=== PATIENT | female | born 1945 | race African-American/Black ===

== ENCOUNTER 2019-05-06 22:12 | Emergency (ER) | payer OTHER, MEDICAID ==
[~2019-05-06] VITALS: Ht 165.1 cm; Wt 72.6 kg
[~2019-05-06 22:12] MED LIST: ACE325T PO; ALBUAER3 IN; ASPI-404 PO; DOCU100C8 PO; LEVO500T21 PO; METO-169 PO; METR500T PO; OMEP20TA PO; SIMV-13 PO
[2019-05-06 23:12] VITALS: BP 109/65
[2019-05-06 23:18] LABS: Basophils # (auto) 0.1 uL; Basophils % (auto) 1.4 % (0.0-2.0); Eosinophils # (auto) 0.1 uL; Eosinophils % (auto) 2.7 % (0.0-7.0); Hematocrit 42.4 % (36.0-46.0); Lymphocytes # (auto) 1.2 uL; Lymphocytes % (auto) 25.6 % (10.0-50.0); Mean Corpuscular Hemoglobin 31.7 pg (28.0-32.0); Mean Corpuscular Hgb Conc. 33.1 g/dL (32.0-36.0); Monocytes # (auto) 0.3 uL; Monocytes % (auto) 6.1 % (0.0-12.0); Neutrophils # (auto) 3.1 uL; Neutrophils % (auto) 64.2 % (37.0-80.0); Nucleated Red Blood Cells % 0.1 %; Platelet Count (auto) 270 10^3/uL (140-450); Red Blood Cells 4.41 10^6/uL (4.0-5.20); Red Cell Distribution Width 14.5 % (11.8-14.3); White Blood Cell 4.8 10^3/uL (4.4-10.8)
[2019-05-06 23:46] LABS: Alanine Aminotransferase 16 U/L (13-56); Albumin 3.3 g/dL (3.4-5.0); Anion Gap 9 (5-15); Aspartate Aminotransferase 15 U/L (15-37); BUN/Creatinine Ratio 11.5; Blood Urea Nitrogen 14 mg/dL (7-18); Carbon Dioxide 21 mmol/L (21-32); Chloride 112 mmol/L (98-107); GFR African American 56 mL/min; GFR Non-African American 46 mL/min; Glucose 110 mg/dL (74-106); Potassium 3.6 mmol/L (3.5-5.1); Sodium 142 mmol/L (136-145)
[2019-05-06 23:50] LABS: Alkaline Phosphatase 202 U/L (45-117); Bilirubin, Total 0.2 mg/dL (0.2-1.0)
[2019-05-07] MEDS ORDERED: MECLIZINE HCL 25 MG TAB PO ONE (02:00)
== END 2019-05-07 03:08 | disposition home or self-care (01) ==
LOC: EDBD 22:12 → ER 22:15
DX: R42 Dizziness and giddiness (principal); R53.1 Weakness; R51 Headache; R11.2 Nausea with vomiting, unspecified; J44.9 Chronic obstructive pulmonary disease, unspecified; K21.9 Gastro-esophageal reflux disease without esophagitis; E78.5 Hyperlipidemia, unspecified; I10 Essential (primary) hypertension; F17.210 Nicotine dependence, cigarettes, uncomplicated; Z79.899 Other long term (current) drug therapy
CPT/HCPCS: 36415; 70450; 80053; 82962; 83735; 84484; 85025; 93005; 99284; J8597

== ENCOUNTER 2024-03-13 23:14 | Emergency (ER) | payer MEDICAID, MEDICARE, OTHER ==
[~2024-03-13] VITALS: Ht 162.6 cm; Wt 70.5 kg
[~2024-03-13 23:14] MED LIST changes: -ACE325T PO; +ACET-1882 PO; -ASPI-404 PO; +ASPI-543 PO; +DOCU-265 PO; -DOCU100C8 PO; -LEVO500T21 PO; +LEVO500T31 PO; -METO-169 PO; +METO-289 PO; -SIMV-13 PO; +SIMV40TA18 PO
--- NOTE | 2024-03-14 00:27 | ED.PDOC ---
GI ASSESSMENT HPI Comments HPI: Poor Historian. 78-year-old female presents to the emergency department for evaluation of one- week history of intermittent epigastric/left upper quadrant pain. Pain is better with laying flat. Patient tried some Tums at home without significant improvement. Denies any associated nausea or vomiting or chest pain or shortness of breath. Past Medcial History: Hypertension, COPD, asthma Past Surgical History: Cholecystectomy REVIEW OF SYSTEMS: CONSTITUTIONAL: Denies acute: fever, diaphoresis, chills, generalized weakness. HEAD: Denies acute: headache, photophobia Eyes: Denies acute: Double vision, vision loss, eye pain, eye discharge. EARS: Denies acute: tinnitus, hearing loss, ear discharge, ear pain, THROAT: Denies acute: sore throat, swelling, difficulty swallowing , pain with swallowing, change in voice. NECK: Denies acute: neck pain, neck swelling, stiff neck. HEART: Denies acute : chest pain, palpitations, LUNGS: Denies acute: SOB, wheezing, cough, hemoptysis ABDOMEN: Denies acute: Nausea, Vomiting, diarrhea, melena , hematemesis, hematochezia SKIN: Denies acute: rash, redness, lesions, itchiness. EXTREMITIES: Denies acute: calf pain, numbness, tingling, weakness, denies pain in extremity. Denies acute: Low back pain. Neuro: Denies acute: focal neurological deficit, motor or sensory focal neurological deficit, tremors, seizure like activity, confusion, dizziness, change in mental status, loss of bowel or bladder function, cauda equina like symptoms. : Denies acute: dysuria, hematuria, flank pain, increase in urinary frequency. PSYCH: Denies acute: hallucination, suicidal ideation, homicidal ideation. FEMALE: Denies acute: abnormal vaginal bleeding, foul odor, unusual discharge. PHYSICAL EXAM: General: no acute distress, awake and alert. Head: normocephalic, atraumatic. Neck: supple, trachea is midline, no swelling. Throat: Normal phonation. Eyes:, no erythema, no purulent discharge, no proptosis, no icterus. Heart: regular rate, regular rhythm, no significant murmur appreciated. Lungs: no apparent respiratory distress, Able to speak in full sentences. No wheezing, no rhonchi, no crackles. No stridors Clear to auscultation bilaterally. Abdomen: Epigastric and left upper quadrant tender to palpation, non distended, soft, no guarding, no rebound, + bowel sounds. Neuro: Awake, Alert, oriented to name, self, situation, follows commands GCS=15. Speech is normal. Skin: no petechia, no purpura, no cyanosis, non-pale, not jaundice. Lower extremities: --trace - Pitting edema no deformity, no focal swelling, no calf TTP. Makes eye contact. moves all four extremities. Face: no apparent facial droop. Ambulating in the ED independently. Chief Complaint: Abdominal Pain Time Seen by MD: 23:47 Primary Care Provider: IRWIN Reviewed Notes: Nurses Notes, Allergies Allergies: Coded Allergies: NO KNOWN ALLERGIES (Unverified , 03/07/19) Home Meds Active Scripts Acetaminophen (Acetaminophen) 325 Mg Tab, 650 MG PO Q4HPRN PRN, #56 TAB Prov:ESTEPHANIA GIPSON MD 03/11/19 Metronidazole (Flagyl) 500 Mg Tab, 500 MG PO Q8HR, #30 TAB Prov:ESTEPHANIA GIPSON MD 03/11/19 Levofloxacin (Levaquin) 500 Mg Tab, 500 MG PO DAILY, #10 TAB Prov:ESTEPHANIA GIPSON MD 03/11/19 Docusate Sodium (Docusate Sodium) 100 Mg Cap, 100 MG PO BID PRN, #14 CAP Prov:ESTEPHANIA GIPSON MD 03/11/19 Reported Medications Simvastatin (Simvastatin) 40 Mg Tab, 40 MG PO HS for 30 Days 03/08/19 Aspirin (Aspir-Low) 81 Mg Tab, 81 MG PO DAILY for 30 Days, MG 03/08/19 Omeprazole (Gnp Omeprazole) 20 Mg Tab, 40 MG PO DAILY, TAB 03/08/19 Metoprolol Succinate (Metoprolol Succinate Er) 50 Mg Tab, 50 MG PO DAILY for 30 Days, MG 03/08/19 Albuterol Sulfate (VENTOLIN MDI) 90 Mcg Ih, 90 MCG IN DAILY PRN for SHORTNESS OF BREATH for 30 Days, MCG 03/08/19 Information Source: Patient Mode of Arrival: Ambulatory Past Medical History PAST MEDICAL HISTORY: Asthma, COPD, GERD, High Lipids, HTN Surgical History: Cholecystectomy, Tubal Ligation 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 HELPER 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: No Pertinent 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 KNITTER HELPER History Family History Family History: Family hx of DM, Family hx of heart [place] Social History Smoker: Cigarettes Alcohol: Occasionally Drugs: Denies Drug Use Lives In: Home X-Ray, Labs, Meds, VS Vital Signs Date Time Temp Pulse Resp B/P (MAP) Pulse Ox O2 Delivery O2 Flow Rate FiO2 03/14/24 00:57 63 03/13/24 23:47 63 03/13/24 23:29 99.1 76 16 166/85 (112) 94 Lab Test 03/14/24 02:17 03/14/24 00:33 03/14/24 00:14 Range/Units Troponin I High Sensitivity Pending 4 </=34 ng/L Urine Color Light-yellow Yellow Urine Clarity Clear Clear Urine pH 6.5 5.0-9.0 Urine Specific [place] 1.006 1.001-1.035 Urine Protein Negative Negative Urine Ketones Negative Negative Urine Blood Negative Negative /uL Urine Nitrite Negative Negative Urine Bilirubin Negative Negative Urine Urobilinogen Normal Negative mg/dL Urine Leukocyte Esterase Negative Negative /uL Urine RBC None seen 0 - 4 /hpf Urine WBC 1 0 - 5 /hpf Urine Squamous Epithelial Cells Few <5 /hpf Urine Bacteria Few H None Seen /hpf Urine Glucose Normal Normal mg/dL White Blood Count 5.2 4.4-10.8 10^3/uL Red Blood Count 5.11 4.0-5.20 10^6/uL Hemoglobin 16.3 H 12.2-16.2 g/dL Hematocrit 49.7 H 36.0-46.0 % Mean Corpuscular Volume 97.1 80.0-100.0 fL Mean Corpuscular Hemoglobin 31.9 28.0-32.0 pg Mean Corpuscular Hemoglobin Concent 32.8 32.0-36.0 g/dL Red Cell Distribution Width 14.5 H 11.8-14.3 % Platelet Count 209 140-450 10^3/uL Mean Platelet Volume 8.1 6.9-10.8 fL Neutrophils (%) (Auto) 35.3 L 37.0-80.0 % Lymphocytes (%) (Auto) 52.0 H 10.0-50.0 % Monocytes (%) (Auto) 8.3 0.0-12.0 % Eosinophils (%) (Auto) 3.1 0.0-7.0 % Basophils (%) (Auto) 1.3 0.0-2.0 % Neutrophils # (Auto) 1.8 1.6-8.6 10 ^3/uL Lymphocytes # (Auto) 2.7 0.4-5.4 10 ^3/uL Monocytes # (Auto) 0.4 0-1.3 10 ^3/uL Eosinophils # (Auto) 0.2 0-0.8 10 ^3/uL Basophils # (Auto) 0.1 0-0.2 10 ^3/uL Nucleated Red Blood Cells 0.2 % Sodium Level 139 136-145 mmol/L Potassium Level 4.0 3.5-5.1 mmol/L Chloride Level 109 H 98-107 mmol/L Carbon Dioxide Level 24 20-31 mmol/L Anion Gap 6 5-15 Blood Urea Nitrogen 5 L 9-23 mg/dL Creatinine 1.01 0.550-1.02 mg/dL Glomerular Filtration Rate Calc 57 >90 mL/min BUN/Creatinine Ratio 5.0 L 10.0-20.0 Serum Glucose 92 74-106 mg/dL Lactic Acid Level 1.4 0.4-2.0 mmol/L Calcium Level 10.6 H 8.7-10.4 mg/dL Total Bilirubin 0.8 0.2-1.0 mg/dL Aspartate Amino Transferase (AST) 11 L 13-40 U/L Alanine Aminotransferase (ALT) 9 7-40 U/L Alkaline Phosphatase 100 46-116 U/L Total Protein 6.9 5.7-8.2 g/dL Albumin 4.4 3.2-4.8 g/dL Lipase 38 12-53 U/L [place] [address] Ph: [phone] DIAGNOSTIC IMAGING Diagnostic Imaging Report : [id number] Signed PATIENT: LARS RUSS ACCT: [id number] UNIT: [id number] : 1945 LOC: [facility] ROOM / BED: [address] [place] [address] AGE / SEX: 73 / F ADM STATUS: ADM IN SERVICE 1532 ORDERING PHYSICIAN: ESTEPHANIA GIPSON MD PROCEDURE(s): ABPL - CT AB PEL WO CON-NO ORAL OR IV REASON: abdominal pain ORDER NUMBER(s): [id number], ACCESSION NUMBER(s): [id number] PROCEDURE: CT Abdomen and Pelvis Without Intravenous Contrast CLINICAL INDICATION: Abdominal pain. TECHNIQUE: Axial computed tomography images of the abdomen and pelvis without intravenous contrast. Sagittal and coronal reformatted images were created and reviewed. CTDIvol (mGy) = 17.01; total DLP (mGy-cm) = 882.42. This CT exam was performed using one or more of the following dose reduction techniques: automated exposure control, adjustment of the mA and/or kV according to patient size, and/or use of iterative reconstruction technique. DICOM images are available. COMPARISON: None FINDINGS: LUNG BASES: Unremarkable. No mass. No consolidation. ABDOMEN: LIVER: Unremarkable. GALLBLADDER AND BILE DUCTS: Suspect sludge or tiny gallstones in the dependent portion of the gallbladder. No changes of acute cholecystitis. No biliary dilatation. PANCREAS: Unremarkable. No ductal dilation. SPLEEN: Unremarkable. No splenomegaly. ADRENALS: Unremarkable. No mass. KIDNEYS AND URETERS: Unremarkable. No obstructing stones. No hydronephrosis. STOMACH AND BOWEL: Large hiatal hernia partially demonstrated, containing most of the stomach as well as a portion of the hepatic flexure of the colon. No mucosal thickening. PELVIS: APPENDIX: The appendix is normal in appearance. No evidence of appendicitis. BLADDER: Unremarkable. No stones. 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 ABDOMEN and PELVIS: INTRAPERITONEAL SPACE: Unremarkable. No free air. No significant fluid collection. BONES/JOINTS: No acute fracture. No dislocation. SOFT TISSUES: Unremarkable. VASCULATURE: Aorta is atherosclerotic, and measures up to 2.1 cm in diameter. LYMPH NODES: Unremarkable. No enlarged lymph nodes. IMPRESSION: 1. Large hiatal hernia partially demonstrated, containing most of the stomach as well as a portion of the hepatic flexure of the colon. No associated acute abnormality. 2. Aorta is atherosclerotic, and measures up to 2.1 cm in diameter. 3. 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 4. Suspect sludge or tiny gallstones in the dependent portion of the gallbladder. No changes of acute cholecystitis. No biliary dilatation. 5. No acute abnormality demonstrated in the abdomen and pelvis. RPTAT: [facility] DICTATED BY: ALIYA NUNES MD DICTATED DATE/TIME: 03/08/192033 SIGNED BY: ALIYA NUNES MD SIGNED DATE/TIME: 03/08/192033 CC: [facility] [id number] [place] [id number] Ph: [phone] DIAGNOSTIC IMAGING Diagnostic Imaging Report : [id number] Signed PATIENT: LARS RUSS ACCT: [id number] UNIT: [id number] : 1945 LOC: ER ROOM / BED: / AGE / SEX: 78 / F ADM STATUS: REG ER SERVICE 7943 ORDERING PHYSICIAN: ANKITA SCHMIDT DO PROCEDURE(s): ABPL - CT AB PEL WO CON-NO ORAL OR IV REASON: epig pain ORDER NUMBER(s): [id number], ACCESSION NUMBER(s): [id number] Exam: CT CT AB PEL WO CON-NO ORAL OR IV History: epig pain Comparison Study: March 08, 2019 Technique: Multidetector spiral CT of the abdomen was performed from lung bases to pubic symphysis. Imaging was performed without IV contrast. Axial, coronal and sagittal multiplanar reformats were obtained from the axial data set by the technologist. Radiation Dose : 1. Abdomen/Pelvis: CTDIvol 7 mGy, DLP 400 mGy*cm. Findings: Evaluation of solid organs is limited due to lack of intravenous contrast use. Lung Bases: Large herniation of the right hemidiaphragm demonstrating the entire stomach and portions of the colon. Liver: The liver is normal in size. No focal lesions. Gallbladder and Biliary Tree: Gallbladder is surgically absent. Spleen: Unremarkable Pancreas: The pancreas is grossly normal in appearance. Adrenal Glands: Unremarkable Kidneys: Kidneys are grossly normal without calculi or hydronephrosis. Left kidney superior pole 1 cm hypodensity. Bladder: Grossly unremarkable for degree of distention. Bowel: The stomach is grossly normal in appearance. Small bowel and colon are normal in caliber and distribution. Normal appendix is visualized in the right lower quadrant without findings of appendicitis. Ascites: Absent Lymphadenopathy: No mesenteric, retroperitoneal or periportal lymphadenopathy. Abdominal Wall and Mesentery: Unremarkable. Vasculature: The visualized abdominal aorta is normal in size and caliber. Evaluation of abdominal and pelvic vessels is limited due to lack of intravenous contrast. Pelvic Organs: Multiple calcified fibroids measuring up to 5 cm. Musculoskeletal: No aggressive focal bony lesions, acute fractures or dis location. IMPRESSION: Relatively stable appearing large herniation of the right hemidiaphragm demonstrating almost the entire stomach and loops of the right colon. Ancillary findings as described above. ATED BY: CASS VERAS DO DICTATED DATE/TIME: 03/14/2444 SIGNED BY: CASS VERAS DO SIGNED DATE/TIME: 03/14/2444 CC: Time of 1ST Reevaluation: 01:16 (Patient had a CT scan done in 2019 that had similar findings. These findings are chronic in nature apparently.) Reevaluation 1ST: Unchanged Patient Education/Counseling: Diagnosis, Treatment Family Education/Counseling: No Family Present Departure 1 Departure Time of Disposition: 01:05 Impression: Primary Impression: Diaphragmatic hernia Additional Impressions: Abdominal pain Abnormal finding on CT scan Disposition: HOME / SELF CARE / HOMELESS Condition: Stable Additional Instructions: Additional discharge instructions: You MUST follow-up with your primary care/family doctor in 1 to 2 days. If you are unable to see your primary care/family doctor, please return to our emergency room for re-assessment and re-evaluation in 1 to 2 days. Return to the emergency room here in our facility or to the nearest ER [facility] if your symptoms change or worsen. CONSULTATIONS: you MUST Follow-up for consultation as soon as possible with: -gastroenterology and general surgery in 1-2 days. Please call for appointment. You MUST call the consultants office yourself to make an appointment. You may need to arrange that through your insurance and/or your primary/family doctor. If you are unable to see the healthcare risk control consultant in 1 to 2 days, you must return to our emergency room (or any other ER of your choice) for re-assessment and re- evaluation. Adequate fluid hydration. Avoid fatty greasy spicy food. Avoid caffeinated products. Avoid NSAIDs. Below is a copy of your radiological report for follow up: [place] [address] Ph: [phone] DIAGNOSTIC IMAGING Diagnostic Imaging Report : [id number] Signed PATIENT: LARS RUSS ACCT: [id number] UNIT: [id number] : 1945 LOC: ER ROOM / BED: / AGE / SEX: 78 / F ADM STATUS: REG ER SERVICE 7989 ORDERING PHYSICIAN: ANKITA SCHMIDT DO PROCEDURE(s): ABPL - CT AB PEL WO CON-NO ORAL OR IV REASON: epig pain ORDER NUMBER(s): [id number], ACCESSION NUMBER(s): [id number] Exam: CT CT AB PEL WO CON-NO ORAL OR IV History: epig pain Comparison Study: March 08, 2019 Technique: Multidetector spiral CT of the abdomen was performed from lung bases to pubic symphysis. Imaging was performed without IV contrast. Axial, coronal and sagittal multiplanar reformats were obtained from the axial data set by the technologist. Radiation Dose : 1. Abdomen/Pelvis: CTDIvol 7 mGy, DLP 400 mGy*cm. Findings: Evaluation of solid organs is limited due to lack of intravenous contrast use. Lung Bases: Large herniation of the right hemidiaphragm demonstrating the entire stomach and portions of the colon. Liver: The liver is normal in size. No focal lesions. Gallbladder and Biliary Tree: Gallbladder is surgically absent. Spleen: Unremarkable Pancreas: The pancreas is grossly normal in appearance. Adrenal Glands: Unremarkable Kidneys: Kidneys are grossly normal without calculi or hydronephrosis. Left kidney superior pole 1 cm hypodensity. Bladder: Grossly unremarkable for degree of distention. Bowel: The stomach is grossly normal in appearance. Small bowel and colon are normal in caliber and distribution. Normal appendix is visualized in the right lower quadrant without findings of appendicitis. Ascites: Absent Lymphadenopathy: No mesenteric, retroperitoneal or periportal lymphadenopathy. Abdominal Wall and Mesentery: Unremarkable. Vasculature: The visualized abdominal aorta is normal in size and caliber. Evaluation of abdominal and pelvic vessels is limited due to lack of intravenous contrast. Pelvic Organs: Multiple calcified fibroids measuring up to 5 cm. Musculoskeletal: No aggressive focal bony lesions, acute fractures or dislocation. IMPRESSION: Relatively stable appearing large herniation of the right hemidiaphragm demonstrating almost the entire stomach and loops of the right colon. Ancillary findings as described above. ATED BY: CASS VERAS DO DICTATED DATE/TIME: 03/14/2444 SIGNED BY: CASS VERAS DO SIGNED DATE/TIME: 03/14/2444 CC: [place] [id number] Ph: [phone] DIAGNOSTIC IMAGING Diagnostic Imaging Report : [id number] Signed PATIENT: LARS RUSS ACCT: [id number] UNIT: [id number] : 1945 LOC: [facility] ROOM / BED: 0103-CC / A AGE / SEX: 73 / F ADM STATUS: ADM IN SERVICE 1532 ORDERING PHYSICIAN: ESTEPHANIA GIPSON MD PROCEDURE(s): ABPL - CT AB PEL WO CON-NO ORAL OR IV REASON: abdominal pain ORDER NUMBER(s): [id number], ACCESSION NUMBER(s): [id number] PROCEDURE: CT Abdomen and Pelvis Without Intravenous Contrast CLINICAL INDICATION: Abdominal pain. TECHNIQUE: Axial computed tomography images of the abdomen and pelvis without intravenous contrast. Sagittal and coronal reformatted images were created and reviewed. CTDIvol (mGy) = 17.01; total DLP (mGy-cm) = 882.42. This CT exam was performed using one or more of the following dose reduction techniques: automated exposure control, adjustment of the mA and/or kV according to patient size, and /or use of iterative reconstruction technique. DICOM images are available. COMPARISON: None FINDINGS: LUNG BASES: Unremarkable. No mass. No consolidation. ABDOMEN: LIVER: Unremarkable. GALLBLADDER AND BILE DUCTS: Suspect sludge or tiny gallstones in the dependent portion of the gallbladder. No changes of acute cholecystitis. No biliary dilatation. PANCREAS: Unremarkable. No ductal dilation. SPLEEN: Unremarkable. No splenomegaly. ADRENALS: Unremarkable. No mass. KIDNEYS AND URETERS: Unremarkable. No obstructing stones. No hydronephrosis. STOMACH AND BOWEL: Large hiatal hernia partially demonstrated, containing most of the stomach as well as a portion of the hepatic flexure of the colon. No mucosal thickening. PELVIS: APPENDIX: The appendix is normal in appearance. No evidence of appendicitis. BLADDER: Unremarkable. No stones. 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 ABDOMEN and PELVIS: INTRAPERITONEAL SPACE: Unremarkable. No free air. No significant fluid collection. BONES/JOINTS: No acute fracture. No dislocation. SOFT TISSUES: Unremarkable. VASCULATURE: Aorta is atherosclerotic, and measures up to 2.1 cm in diameter. LYMPH NODES: Unremarkable. No enlarged lymph nodes. IMPRESSION: 1. Large hiatal hernia partially demonstrated, containing most of the stomach as well as a portion of the hepatic flexure of the colon. No associated acute abnormality. 2. Aorta is atherosclerotic, and measures up to 2.1 cm in diameter. 3. 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 4. Suspect sludge or tiny gallstones in the dependent portion of the gallbladder. No changes of acute cholecystitis. No biliary dilatation. 5. No acute abnormality demonstrated in the abdomen and pelvis. RPTAT: [facility] DICTATED BY: ALIYA NUNES MD DICTATED DATE/TIME: 03/08/192033 SIGNED BY: ALIYA NUNES MD SIGNED DATE/TIME: 03/08/192033 CC: Discharged With: Self I personally scribed for ANKITA SCHMIDT DO ([email or web address]) on 03/14/24 at 02:33. Electronically submitted by Maik Richter ([email or web address]). ANKITA SCHMIDT DO Mar 14, 2024 00:27
[2024-03-14 00:29] LABS: Basophils # (auto) 0.1 10 ^3/uL (0-0.2); Basophils % (auto) 1.3 % (0.0-2.0); Eosinophils # (auto) 0.2 10 ^3/uL (0-0.8); Eosinophils % (auto) 3.1 % (0.0-7.0); Hematocrit 49.7 % (36.0-46.0); Hemoglobin 16.3 g/dL (12.2-16.2); Lymphocytes # (auto) 2.7 10 ^3/uL (0.4-5.4); Mean Corpuscular Hemoglobin 31.9 pg (28.0-32.0); Mean Corpuscular Hgb Conc. 32.8 g/dL (32.0-36.0); Mean Corpuscular Volume 97.1 fL (80.0-100.0); Monocytes # (auto) 0.4 10 ^3/uL (0-1.3); Monocytes % (auto) 8.3 % (0.0-12.0); Neutrophils # (auto) 1.8 10 ^3/uL (1.6-8.6); Neutrophils % (auto) 35.3 % (37.0-80.0); Nucleated Red Blood Cells % 0.2 %; Platelet Count (auto) 209 10^3/uL (140-450); Red Blood Cells 5.11 10^6/uL (4.0-5.20); Red Cell Distribution Width 14.5 % (11.8-14.3); White Blood Cell 5.2 10^3/uL (4.4-10.8)
[2024-03-14 00:44] LABS: Albumin 4.4 g/dL (3.2-4.8); Alkaline Phosphatase 100 U/L (46-116); Anion Gap 6 (5-15); Bilirubin, Total 0.8 mg/dL (0.2-1.0); Carbon Dioxide 24 mmol/L (20-31); Glucose 92 mg/dL (74-106); Lipase 38 U/L (12-53); Sodium 139 mmol/L (136-145)
[2024-03-14 00:45] LABS: Alanine Aminotransferase 9 U/L (7-40); Aspartate Aminotransferase 11 U/L (13-40); Calcium 10.6 mg/dL (8.7-10.4); Chloride 109 mmol/L (98-107); Total Protein 6.9 g/dL (5.7-8.2)
--- NOTE | 2024-03-14 00:49 | DVH ---
Exam: CT CT AB PEL WO CON-NO ORAL OR IV History: epig pain Comparison Study: March 08, 2019 Technique: Multidetector spiral CT of the abdomen was performed from lung bases to pubic symphysis. Imaging was performed without IV contrast. Axial, coronal and sagittal multiplanar reformats were ob tained from the axial data set by the technologist. Radiation Dose : 1. Abdomen/Pelvis: CTDIvol 7 mGy, DLP 400 mGy*cm. Findings: Evaluation of solid organs is limited due to lack of intravenous contrast use. Lung Bases: Large herniation of the right hemidiaphragm demonstrating the entire stomach and portions of the colon. Liver: The liver is normal in size. No focal lesions. Gallbladder and Biliary Tree: Gallbladder is surgically absent. Spleen: Unremarkable Pancreas: The pancreas is grossly normal in appearance. Adrenal Glands: Unremarkable Kidneys: Kidneys are grossly normal without calculi or hydronephrosis. Left kidney superior pole 1 cm hypodensity. Bladder: Grossly unremarkable for degree of distention. Bowel: The stomach is grossly normal in appearance. Small bowel and colon are normal in caliber and d istribution. Normal appendix is visualized in the right lower quadrant without findings of appendici tis. Ascites: Absent Lymphadenopathy: No mesenteric, retroperitoneal or periportal lymphadenopathy. Abdominal Wall and Mesentery: Unremarkable. Vasculature: The visualized abdominal aorta is normal in size and caliber. Evaluation of abdominal a nd pelvic vessels is limited due to lack of intravenous contrast. Pelvic Organs: Multiple calcified fibroids measuring up to 5 cm. Musculoskeletal: No aggressive focal bony lesions, acute fractures or dislocation. IMPRESSION: Relatively stable appearing large herniation of the right hemidiaphragm demonstrating almost the enti re stomach and loops of the right colon. Ancillary findings as described above.
[2024-03-14 00:50] LABS: Urine Bacteria FEW /hpf (None Seen); Urine Blood Negative /uL (Negative); Urine Clarity Clear (Clear); Urine Color Light-Yellow (Yellow); Urine Protein, UAD Negative (Negative); Urine Specific Gravity 1.006 (1.001-1.035); Urine Urobilinogen Normal (Negative); Urine WBC 1 /hpf (0 - 5); Urine pH 6.5 (5.0-9.0)
[2024-03-14 01:48] LABS: Blood Urea Nitrogen 5 mg/dL (9-23)
[2024-03-14] MEDS: LIDOCAINE VISCOUS 2% 15ML UD PO ONE (02:50)
[2024-03-14] MEDS: PANTOPRAZOLE 40 MG TAB PO ONE (02:50)
[2024-03-14] MEDS: SUCRALFATE 1 GM TAB PO ONE (02:51)
[2024-03-14] MEDS: HYDROcodone-ACET 5/325MG TAB PO ONE (02:51)
[2024-03-14 02:59] VITALS: BP 131/81; PULSE 68; RESP 16; TEMP 98.6; O2SAT 92
--- NOTE | 2024-03-14 03:00 | ECG ---
[facility] [place]24-03-13 Test Time: 23:47:00 Pat Name: LARS RUSS Department: ER Room: Gender: F Mix Technician: LIAM : 1945 Requested By: ANKITA SCHMIDT Order Number: [id number] Reading MD: Ishaan Klein Measurements Intervals [place] Rate: 63 P: 83 WA: 137 QRS: 67 QRSD: 92 T: 82 QT: 401 QTc: 411 Interpretive Statements Sinus arrhythmia Consider right atrial enlargement Nonspecific T abnormalities, lateral leads Electronically Signed On 03-17-2024 10:22:14 PST by Ishaan Klein Please click the below link to view image of tracing.
--- NOTE | 2024-03-14 03:00 | ECG ---
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
== END 2024-03-14 03:07 | disposition home or self-care (01) ==
LOC: ER 23:14
DX: K44.9 Diaphragmatic hernia without obstruction or gangrene (principal); R93.89 Abnormal findings on diagnostic imaging of other specified body structures; I10 Essential (primary) hypertension; K21.9 Gastro-esophageal reflux disease without esophagitis; E78.5 Hyperlipidemia, unspecified; J44.9 Chronic obstructive pulmonary disease, unspecified; F17.210 Nicotine dependence, cigarettes, uncomplicated; Z90.49 Acquired absence of other specified parts of digestive tract; Z98.890 Other specified postprocedural states; Z79.82 Long term (current) use of aspirin; Z79.899 Other long term (current) drug therapy
CPT/HCPCS: 36415; 74176; 80053; 81001; 83605; 83690; 84484; 85025; 93005